=== PATIENT | male | born 1955 | race American Indian/Alaskan Native ===

== ENCOUNTER 2020-10-03 21:21 | Emergency (ER) | payer OTHER ==
--- NOTE | 2020-10-03 22:45 | XRay Report ---
CERVICAL SPINE 3 VIEWS INDICATION / CLINICAL INFORMATION: neck pain. COMPARISON: None available. FINDINGS: VERTEBRAE: No acute fracture. No significant malalignment. DISC SPACES / FACET JOINTS:Mild disc space narrowing at C5-6 and C6-7. PARASPINAL SOFT TISSUES:No significant abnormality. ADDITIONAL FINDINGS: Small focus of nuchal ligament ossification. Signer Name: Linda Walter MD Signed: 10/03/2020 10:40 PM Workstation Name: [id number]
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
[2020-10-03] MEDS ORDERED: IBUPROFEN 600 MG TAB PO ONE (23:27)
[2020-10-03] MEDS ORDERED: ACETAMINOPHEN 325 MG TAB PO ONE (23:27)
[2020-10-04 00:59] VITALS: BP 122/61
== END 2020-10-04 01:00 | disposition home or self-care (01) ==
LOC: ED 21:21
DX: S13.9XXA Sprain of joints and ligaments of unspecified parts of neck, initial encounter (principal); M62.838 Other muscle spasm; E11.9 Type 2 diabetes mellitus without complications; F17.200 Nicotine dependence, unspecified, uncomplicated; Z79.899 Other long term (current) drug therapy; V49.49XA Driver injured in collision with other motor vehicles in traffic accident, initial encounter; Y93.89 Activity, other specified; Y92.488 Other paved roadways as the place of occurrence of the external cause; Y99.8 Other external cause status
CPT/HCPCS: 72040; 99283